=== PATIENT | female | born 1980 | race Two or more races ===

== ENCOUNTER 2016-07-06 19:06 | Emergency (ER) | payer MEDICAID ==
[2016-07-06] MEDS ORDERED: DIAZEPAM 5 MG TABLET ONE (20:12)
== END 2016-07-06 20:39 | disposition home or self-care (01) ==
LOC: ED 19:06
DX: F41.0 Panic disorder [episodic paroxysmal anxiety] (principal); R07.9 Chest pain, unspecified; R53.1 Weakness
CPT/HCPCS: 99283 ×2; 93005; A9270